=== PATIENT | male | born 1960 | race Two or more races ===

== ENCOUNTER 2018-09-09 11:09 | Emergency (ER) | payer OTHER ==
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
--- NOTE | 2018-09-10 08:10 | Diagnostic Imaging Report ---
Right knee (4 views) HISTORY: Pain No acute abnormalities. No fractures. Joint spaces are normal. Spur formation extends off the anterior margin of the patella. IMPRESSION: No acute bony abnormalities
== END 2018-09-09 16:15 | disposition home or self-care (01) ==
LOC: ER 11:09
DX: M25.561 Pain in right knee (principal); M54.5 Low back pain; M25.461 Effusion, right knee
CPT/HCPCS: 72131-TC; 73562-TC-RT; 96374; J1885; Z7502